=== PATIENT | male | born 1935 | race Caucasian/White ===

== ENCOUNTER 2018-02-12 19:50 | Emergency (ER) | payer MEDICARE ==
[~2018-02-12] VITALS: Ht 182.9 cm; Wt 76.0 kg
[~2018-02-12 19:50] MED LIST: APIX5TAB3 PO; ASPI-611 PO; CARV6.253 PO; CLOP75TA35 PO; DIGO125T PO; FURO40TA4 PO; INSU300I SQ; LISI-604 PO; POTA-82 PO; SPIR25TA PO; UBID100C16 PO
[2018-02-12] MEDS ORDERED: INSU100I31 (20:08)
[2018-02-12] MEDS ORDERED: ISOS30TA9 PO (20:08)
[2018-02-12] MEDS ORDERED: NOVLG SQ (20:08)
[2018-02-12 20:21] VITALS: BP 149/87
[2018-02-12] MEDS ORDERED: TETanus/Pertussis (Acell)/Diphther VAC/PF (Tdap-Adult) 0.5ml syringe IMVAC ONE (20:30)
== END 2018-02-12 21:17 | disposition home or self-care (01) ==
LOC: ER 19:51
DX: S61.412A Laceration without foreign body of left hand, initial encounter (principal); I25.2 Old myocardial infarction; Z79.82 Long term (current) use of aspirin; W45.8XXA Other foreign body or object entering through skin, initial encounter; Y93.89 Activity, other specified; Y92.89 Other specified places as the place of occurrence of the external cause; Y99.8 Other external cause status
CPT/HCPCS: 90471; 90715; 99284; A6255